=== PATIENT | female | born 1975 | race Caucasian/White ===

== ENCOUNTER 2016-09-07 21:17 | Emergency (ER) | payer OTHER ==
[~2016-09-07 21:17] MED LIST: PERCOCET1 TA1 PO
--- NOTE | 2016-09-07 23:03 | ED NURSING NOTES ---
Clinical Report - Nurses [facility] [address] [place] [address] 09/07/2016 21:20 [id number] Triage time 21:Sep 07 2016. Acuity: LEVEL 3. Chief Complaint: DIZZINESS and LIGHT HEADED. SEPSIS SCREEN: Sepsis Screen: negative. Negative (no infection suspected/documented). ARON COMA SCORE: Aron Coma Scale: 15- eyes open spontaneously (4); best verbal response- oriented x 4 (5); best motor response- obeys commands (6). --21:34 Nancy Amos 21:30 09/07/16. BP: 140/52. HR: 64. RR: 20. O2 saturation: 100% on room air. Pain level now: 0/10. --21:34 Nancy Amos 21:34 09/07/16. Temp: 97.8 F (oral). --21:34 Nancy Amos. Weight: 81.6 kg stated. Height/Length: 68 inches Per Patient. BMI: 27.4. --21:33 Nancy Amos. Medications None. --21:31 Nancy Amos. Medication/allergy information source: the patient. --21:34 Nancy Amos. Allergies No Known Drug Allergy. --21:31 Nancy Amos. History Arrived by private vehicle. Historian: patient. Accompanied by friend. Primary physician (jayro). This started 1 weeks. ( Patient reports for one week she has had episodes of dizziness, she states during these episodes she feels like she will pass out.). Treatment CHILDREN'S COUNSELOR: None. PAST MEDICAL HX: Immunizations: up-to-date. Last normal menstrual period now. SOCIAL HX: Heavy tobacco smoker (cigarette)- 1 pack per day. Occasional alcohol use. No drug use. No infectious disease exposure. ABUSE ASSESSMENT: No report of abuse. FALL RISK ASSESSMENT: Fall risk assessment completed. No fall risk identified. NUTRITIONAL RISK ASSESSMENT: The nutritional risk assessment revealed no deficiencies. FUNCTIONAL ASSESSMENT: Functional assessment: no impairments noted. LEARNING NEEDS ASSESSMENT: The learning needs assessment revealed no barriers. SKIN INTEGRITY ASSESSMENT: Skin integrity risk assessment completed. No skin integrity risk identified. --21:34 Nancy Amos. PROBLEMS: Ovarian Cyst. --21:31 Nancy Amos. ADDITIONAL SURGERIES: Tubal Ligation. --21:31 Nancy Amos. Interventions ID band on patient. To treatment room. --:34 Nancy Amos. NURSING PROGRESS NOTES :09/07/16. human machine interface engineer, pulse oximeter and NIBP monitor placed on patient; monitor alarms on. EKG time: (:33 Sep 07 2016). EKG was performed by a nurse and shown to the ED physician. Patient gowned. Reassurance given to the patient. Two patient identifiers checked. Call light placed in reach. Side rails up x 1. Bed placed in lowest position. Brakes of bed on. --:34 Nancy Amos Patient ready for evaluation- chart flagged and ED physician notified. --21:34 Nancy Amos :09/07/2016 Site #1 started via IV in the right antecubital space with an 20g angiocath, with aseptic technique and good blood return; one attempt. Blood drawn: rainbow set. Labeled in the presence of the patient and sent to the lab. Saline lock flushed with 10 mL saline. --:58 Nancy Amos :09/07/2016 Started bag #1 1000 mL IV Fluids IV NS (Saline); at 1000 mL/hr over 1 hour(s) via site #1. Allergies verified and confirmed 5 rights. IV patency established. IV site checked: no pain, redness, or swelling. IV flushed thoroughly pre- and post-medication administration. --21:58 Nancy Amos 21:58 09/07/16. BP: 129/66 taken while lying. HR: 55. --21:59 Nancy Amos 21:59 09/07/16. BP: 133/79 taken while sitting. HR: 72. --21:59 Nancy Amos 21:59 09/07/16. BP: 129/82 taken while standing. HR: 67. --21:59 Nancy Amos ( Patient assisted to restroom). --21:59 Nancy Amos 22:53 09/07/2016 IV Fluids IV NS Discontinued: bag #1 completed upon discharge. Total amount infused: 1000 mL. IV patency established. IV site checked: no pain, redness, or swelling. IV flushed thoroughly. --22:53 Nancy Amos 22:53 09/07/16. BP: 130/84. HR: 52. RR: 20. O2 saturation: 99% on room air. --22:53 Nancy Amos. DISPOSITION / DISCHARGE 23:09/07/2016 Site #1 removed upon discharge. Catheter intact. Manual pressure and bandage applied. --23:09 Trena Romo R.N. 23:09/07/16. BP: 130/84. HR: 54. RR: 17. O2 saturation: 100% on room air. Temp: deferred. Pain level now: 0/10. --23:10 Trena Romo R.N. 23:15 09/07/16. Condition at departure: stable. The goals identified in the patient's plan of care were met. No learning barriers present. Discharge instructions provided and reviewed with the patient and spouse. Reviewed medication(s) side effects, precautions, dosing and course information. Prescription(s) given to the patient. Reviewed need for increased fluid intake. Patient verbalized understanding. Written instructions provided in Setswana. ( Follow up with your PCP for next available appointment. Return if your symptoms worsen. Drink plenty of fluids and rest. Patient and spouse verbalized understanding and had no additional questions at this time.). The patient was discharged by the nurse practitioner. She was discharged home and accompanied by spouse. She left the Emergency Department ambulatory and via private vehicle. Spouse driving. FALL RISK ASSESSMENT: Fall risk assessment completed. No fall risk identified. --00:42 Nancy Amos. Locked/Released at 09/08/2016 0:45 by Nancy Amos,
--- NOTE | 2016-09-07 23:03 | ED CLINICAL REPORT ---
Clinical Report - Physicians/Mid Levels [facility] [address] [place] [address] 09/07/2016 21:20 [id number] Time Seen: 21:33; upon arrival, initial patient contact, initial documentation, patient care assumed. Arrived- By private vehicle. Historian- patient. HISTORY OF PRESENT ILLNESS Chief Complaint: DIZZINESS. Severity described as severe at its maximum. When seen in the E.D., it was gone. Modifying factors- relieved by nothing. Not worsened by anything. Not described as a sense of rotation, movement, falling or confusion or feeling weak all over. Described as feeling off balance, light-headed and faint. This started about 1 weeks ago and is now gone. It was abrupt in onset and has been intermittent. No nausea, vomiting, hearing loss, tinnitus or ear pain. (having random intermittent issues of dizziness and feeling faint and lightheaded, comes on last a few sec to min and goes away, this episode was after her run tonight, lasted about 30 min). Similar symptoms previously: None. Recent medical care: Not recently seen/assessed. REVIEW OF SYSTEMS No headache, double vision, weakness, head injury or chest pain. No numbness, difficulty breathing or diarrhea. No difficulty walking. All systems otherwise negative, except as recorded above. PAST HISTORY See nurses notes. ( PROBLEMS: Ovarian Cyst. --21:31 Nancy Amos. ADDITIONAL SURGERIES: Tubal Ligation. --21:31 Nancy Amos.). SOCIAL HISTORY Heavy tobacco smoker. Occasional alcohol use. No drug use. No recent travel. Is a local resident. FAMILY HISTORY Negative. ADDITIONAL NOTES The nursing notes have been reviewed with agreement regarding the chief complaint, HPI, ROS, PMH and patient medications and allergies. PHYSICAL EXAM Vital Signs: 09/07/2016 21:30 BP: 140/52. HR: 64. RR: 20. O2 saturation: 100%. Pain level now: 0/10. Have been reviewed as normal and appear to be correct. Appearance: Alert. No acute distress. Eyes: Pupils equal, round and reactive to light. No nystagmus. Extraocular movements normal. ENT: Normal ENT inspection. TM's normal. Moist mucous membranes. Pharynx normal. Neck: Normal inspection. Neck supple. CVS: Normal heart rate and rhythm. Heart sounds normal. Pulses normal. Respiratory: No respiratory distress. Breath sounds normal. Back: Normal inspection. Skin: Skin warm and dry. Normal skin color. No rash. Normal skin turgor. Extremities: Extremities exhibit normal ROM. No lower extremity edema. Neuro: Alert. Oriented X 3. Mood/affect normal. Speech normal. Cranial nerves normal (as tested). No cerebellar findings. No motor deficit. No sensory deficit. LABS, X-RAYS, AND EKG EKG: EKG time: (21:33). No acute process. No acute ischemia. Normal EKG. Rate: 60. Normal EKG. The study has been interpreted contemporaneously by me (and dr valerio). The EKG appears to be a good tracing. Interpretation time: 2134. Laboratory Tests: Serum Qualitative: (MILLY: 09/07/2016 21:50) ( [facility] 09/07/2016 22:14) Final results Test Result Flag Units (Reference) , SERUM NEGATIVE CBC w Diff: (MILLY: 09/07/2016 21:50) ( [facility] 09/07/2016 22:15) Final results Test Result Flag Units (Reference) WHITE BLOOD COUNT 9.1 K/uL (4.5-11.5) RED BLOOD COUNT 4.41 M/uL (4.00-5.20) HEMOGLOBIN 13.5 gm/dL (12.0-16.0) HEMATOCRIT 38.8 % (36.0-46.0) MEAN CELL VOLUME 88 fL (80-100) MEAN CORPUSCULAR HGB 31 pg (26-34) MEAN CORPUSCULAR HGB CONC 35 g/dL (31-37) RED CELL DISTRIBUTION WIDTH 13.2 % (11.6-14.8) PLATELET COUNT 198 K/uL (150-400) NEUTROPHIL % 57.9 % (50-75) LYMPH % 31.0 % (25-40) MONO % 8.6 % (3-14) EOSINOPHIL % 1.8 % (0-4) BASOPHIL % 0.7 % (0-2) CMP: (MILLY: 09/07/2016 21:50) ( MsgRcvd 09/07/2016 22:38) Final results Test Result Flag Units (Reference) GLUCOSE 106 mg/dL (70-110) BUN 11 mg/dL (7-18) CREATININE 0.8 mg/dL (0.6-1.3) Estimated GFR >60 mL/min Estimated GFR- >60 mL/min Note: Persistent reduction over 3 months in eGFR<60 mL/min/1.73 m2 defines CKD. Patients with eGFR values>=60 mL/min/1.73 m2 may also have CKD if evidence ofpersistent proteinuria. Additional information may be foundat www.kidney.org. SODIUM 128 L mmol/L (136-145) POTASSIUM 4.0 mmol/L (3.5-5.1) CHLORIDE 95 L mmol/L (98-107) CARBON DIOXIDE 28 mmol/L (21-32) CALCIUM 8.6 mg/dL (8.5-10.1) TOTAL PROTEIN 7.3 g/dL (6.4-8.2) ALBUMIN 3.6 g/dL (3.3-5.0) BILIRUBIN, TOTAL 0.6 mg/dL (0.0-1.0) ALKALINE PHOSPHATASE 67 U/L (46-116) AST (SGOT) 25 U/L (15-37) ALT (SGPT) 33 U/L (12-78) . PROGRESS AND PROCEDURES Family counseled in person regarding the patient's stable condition, test results and diagnosis. 23:02. Differential Diagnosis: I considered vertigo, cochlear disease, labyrinthitis, drug-related etiology, benign positional vertigo, brainstem TIA, near-syncope, anxiety, psychosis and metaphorical dizziness such as depression, chronic fatigue, etc as a possible cause of dizziness in this patient. This is a partial list of diagnoses considered. Above considerations are based on history, physical exam, reassessment and X-Ray data. Differential diagnosis was discussed with patient. Disposition: Discharged home in good and improved condition (23:02). Condition: good and stable. CLINICAL IMPRESSION Acute dizziness Mild hyponatremia INSTRUCTIONS Warnings: Further evaluation is necessary in order to recheck abnormal lab (Na 128). It is very important to follow up with a physician. GENERAL WARNINGS: Return or contact your physician immediately if your condition worsens or changes unexpectedly, if not improving as expected, or if other problems arise. SPECIFICALLY, return if you develop chest pain, neck pain, jaw pain, shoulder pain, arm pain, back pain, fluttering sensation in your chest, lightheadedness, fainting, numbness, weakness or extreme fatigue. Prescription Medications: Zofran 4 mg: Take 1 orally every six hours as needed for nausea/vomiting. Dispense ten (10). No refills. Substitution is permissible. Follow-up: Follow up with your doctor in about two days even if well. Call for an appointment. Summary of care provided to patient. Understanding of the discharge instructions verbalized by patient. (Electronically signed by Xin Goodwin A.R.N.P. 09/07/2016 23:16)
--- NOTE | 2016-09-07 23:03 | ED NURSING NOTES ---
Clinical Report - Nurses [facility] [address] [place] [address] 09/07/2016 21:20 [id number] Triage time 21:Sep 07 2016. Acuity: LEVEL 3. Chief Complaint: DIZZINESS and LIGHT HEADED. SEPSIS SCREEN: Sepsis Screen: negative. Negative (no infection suspected/documented). ARON COMA SCORE: Aron Coma Scale: 15- eyes open spontaneously (4); best verbal response- oriented x 4 (5); best motor response- obeys commands (6). --21:34 Nancy Amos 21:30 09/07/16. BP: 140/52. HR: 64. RR: 20. O2 saturation: 100% on room air. Pain level now: 0/10. --21:34 Nancy Amos 21:34 09/07/16. Temp: 97.8 F (oral). --21:34 Nancy Amos. Weight: 81.6 kg stated. Height/Length: 68 inches Per Patient. BMI: 27.4. --21:33 Nancy Amos. Medications None. --21:31 Nancy Amos. Medication/allergy information source: the patient. --21:34 Nancy Amos. Allergies No Known Drug Allergy. --21:31 Nancy Amos. History Arrived by private vehicle. Historian: patient. Accompanied by friend. Primary physician (jayro). This started 1 weeks. ( Patient reports for one week she has had episodes of dizziness, she states during these episodes she feels like she will pass out.). Treatment DOOR SLINGER: None. PAST MEDICAL HX: Immunizations: up-to-date. Last normal menstrual period now. SOCIAL HX: Heavy tobacco smoker (cigarette)- 1 pack per day. Occasional alcohol use. No drug use. No infectious disease exposure. ABUSE ASSESSMENT: No report of abuse. FALL RISK ASSESSMENT: Fall risk assessment completed. No fall risk identified. NUTRITIONAL RISK ASSESSMENT: The nutritional risk assessment revealed no deficiencies. FUNCTIONAL ASSESSMENT: Functional assessment: no impairments noted. LEARNING NEEDS ASSESSMENT: The learning needs assessment revealed no barriers. SKIN INTEGRITY ASSESSMENT: Skin integrity risk assessment completed. No skin integrity risk identified. --21:34 Nancy Amos. PROBLEMS: Ovarian Cyst. --21:31 Nancy Amos. ADDITIONAL SURGERIES: Tubal Ligation. --21:31 Nancy Amos. Interventions ID band on patient. To treatment room. --:34 Nancy Amos. NURSING PROGRESS NOTES :09/07/16. patient monitor, pulse oximeter and NIBP monitor placed on patient; monitor alarms on. EKG time: (:33 Sep 07 2016). EKG was performed by a nurse and shown to the ED physician. Patient gowned. Reassurance given to the patient. Two patient identifiers checked. Call light placed in reach. Side rails up x 1. Bed placed in lowest position. Brakes of bed on. --:34 Nancy Amos Patient ready for evaluation- chart flagged and ED physician notified. --21:34 Nancy Amos :09/07/2016 Site #1 started via IV in the right antecubital space with an 20g angiocath, with aseptic technique and good blood return; one attempt. Blood drawn: rainbow set. Labeled in the presence of the patient and sent to the lab. Saline lock flushed with 10 mL saline. --:58 Nancy Amos :09/07/2016 Started bag #1 1000 mL IV Fluids IV NS (Saline); at 1000 mL/hr over 1 hour(s) via site #1. Allergies verified and confirmed 5 rights. IV patency established. IV site checked: no pain, redness, or swelling. IV flushed thoroughly pre- and post-medication administration. --21:58 Nancy Amos 21:58 09/07/16. BP: 129/66 taken while lying. HR: 55. --21:59 Nancy Amos 21:59 09/07/16. BP: 133/79 taken while sitting. HR: 72. --21:59 Nancy Amos 21:59 09/07/16. BP: 129/82 taken while standing. HR: 67. --21:59 Nancy Amos ( Patient assisted to restroom). --21:59 Nancy Amos 22:53 09/07/2016 IV Fluids IV NS Discontinued: bag #1 completed upon discharge. Total amount infused: 1000 mL. IV patency established. IV site checked: no pain, redness, or swelling. IV flushed thoroughly. --22:53 Nancy Amos 22:53 09/07/16. BP: 130/84. HR: 52. RR: 20. O2 saturation: 99% on room air. --22:53 Nancy Amos. DISPOSITION / DISCHARGE 23:09/07/2016 Site #1 removed upon discharge. Catheter intact. Manual pressure and bandage applied. --23:09 Trena Romo R.N. 23:09/07/16. BP: 130/84. HR: 54. RR: 17. O2 saturation: 100% on room air. Temp: deferred. Pain level now: 0/10. --23:10 Trena oRmo R.N. 23:15 09/07/16. Condition at departure: stable. The goals identified in the patient's plan of care were met. No learning barriers present. Discharge instructions provided and reviewed with the patient and spouse. Reviewed medication(s) side effects, precautions, dosing and course information. Prescription(s) given to the patient. Reviewed need for increased fluid intake. Patient verbalized understanding. Written instructions provided in Spanish. ( Follow up with your PCP for next available appointment. Return if your symptoms worsen. Drink plenty of fluids and rest. Patient and spouse verbalized understanding and had no additional questions at this time.). The patient was discharged by the nurse practitioner. She was discharged home and accompanied by spouse. She left the Emergency Department ambulatory and via private vehicle. Spouse driving. FALL RISK ASSESSMENT: Fall risk assessment completed. No fall risk identified. --00:42 Nancy Amos. Locked/Released at 09/08/2016 0:45 by Nancy Amos,
--- NOTE | 2016-09-07 23:03 | ED ORDER SUMMARY ---
..... Patient: KRISTIN FOX OrderSheet [facility] VisitID: [id number] [place] [address] 41y, F Registration Date/Time: 09/07/2016 ORDER SHEET Weight: 81.6 kg (stated) Allergies: No Known Drug Allergy GENERAL ORDERS: Vitals - Orthostatic (21:39 09/07/2016 HBivens A.R.N.P.) (21:42 HSoule) CBC w Diff Urgent (21:40 09/07/2016 HBivens A.R.N.P.) (Ack 22:04 RKaruga) (22:52 HSoule) CMP Urgent (21:40 09/07/2016 HBivens A.R.N.P.) (Ack 22:04 RKaruga) (22:52 HSoule) Serum Qualitative Urgent (21:40 09/07/2016 HBivens A.R.N.P.) (Ack 22:04 RKaruga) (22:52 HSoule) MEDICATION ORDERS: IV FLUIDS: IV NS : initial bolus 1000 mL (1000 mL/hr), then none - (NOW) (21:40 09/07/2016 HBivens A.R.N.P.) (Ack 21:42 HSoule) (21:58 HSoule) IV Saline Lock (21:40 09/07/2016 HBivens A.R.N.P.) (Ack 21:42 HSoule) (21:58 HSoule) IV NS : initial bolus 1000 mL (1000 mL/hr), then none - (NOW) (22:37 09/07/2016 HBivens A.R.N.P.) (Ack 22:37 HSoule) (Cancelled: Other22:38 HBivens A.R.N.P.) ORDER SHEET NOTES: [Electronically signed by Xin Goodwin A.R.N.P. (23:16 09/07/2016)] [Electronically signed by Nancy Amos (00:45 09/08/2016)] [Electronically locked/signed by Nancy Amos (00:45 09/08/2016)]
--- NOTE | 2016-09-07 23:03 | ED ORDER SUMMARY ---
..... Patient: KRISTIN FOX OrderSheet [facility] VisitID: [id number] [place] [address] 41y, F Registration Date/Time: 09/07/2016 ORDER SHEET Weight: 81.6 kg (stated) Allergies: No Known Drug Allergy GENERAL ORDERS: Vitals - Orthostatic (21:39 09/07/2016 HBivens A.R.N.P.) (21:42 HSoule) CBC w Diff Urgent (21:40 09/07/2016 HBivens A.R.N.P.) (Ack 22:04 RKaruga) (22:52 HSoule) CMP Urgent (21:40 09/07/2016 HBivens A.R.N.P.) (Ack 22:04 RKaruga) (22:52 HSoule) Serum Qualitative Urgent (21:40 09/07/2016 HBivens A.R.N.P.) (Ack 22:04 RKaruga) (22:52 HSoule) MEDICATION ORDERS: IV FLUIDS: IV NS : initial bolus 1000 mL (1000 mL/hr), then none - (NOW) (21:40 09/07/2016 HBivens A.R.N.P.) (Ack 21:42 HSoule) (21:58 HSoule) IV Saline Lock (21:40 09/07/2016 HBivens A.R.N.P.) (Ack 21:42 HSoule) (21:58 HSoule) IV NS : initial bolus 1000 mL (1000 mL/hr), then none - (NOW) (22:37 09/07/2016 HBivens A.R.N.P.) (Ack 22:37 HSoule) (Cancelled: Other22:38 HBivens A.R.N.P.) ORDER SHEET NOTES: [Electronically signed by Xin Goodwin A.R.N.P. (23:16 09/07/2016)] [Electronically signed by Nancy Amos (00:45 09/08/2016)] [Electronically locked/signed by Nancy Amos (00:45 09/08/2016)]
--- NOTE | 2016-09-08 00:45 | ED DISCHARGE INSTRUCTIONS ---
Patient: KRISTIN FOX General Instructions Located Within [facility] VisitID: [id number] [place] [address] 41y, F Registration Date/Time: 09/07/2016 Acute dizziness Mild hyponatremia INSTRUCTIONS Warnings: Further evaluation is necessary in order to recheck abnormal lab (Na 128). It is very important to follow up with a physician. GENERAL WARNINGS: Return or contact your physician immediately if your condition worsens or changes unexpectedly, if not improving as expected, or if other problems arise. SPECIFICALLY, return if you develop chest pain, neck pain, jaw pain, shoulder pain, arm pain, back pain, fluttering sensation in your chest, lightheadedness, fainting, numbness, weakness or extreme fatigue. Prescription Medications: Zofran 4 mg: Take 1 orally every six hours as needed for nausea/vomiting. Dispense ten (10). No refills. Substitution is permissible. Follow-up: Follow up with your doctor in about two days even if well. Call for an appointment. Summary of care provided to patient. Understanding of the discharge instructions verbalized by patient. ADDITIONAL INFORMATION Dizziness [Uncertain Cause] Dizziness is a common symptom sometimes described as "lightheadedness" or feeling like you are going to faint. If it lasts for only a few seconds and is related to changes in position (such as getting up after lying or sitting for a long time), it is usually not a sign of anything serious. Dizziness that lasts for minutes to hours, or comes on for no apparent reason, may be a sign of a more serious problem (such as dehydration, a medicine reaction, disease of the heart or brain). Today's exam did not show an exact cause for your dizzy spell . Sometimes additional tests are required before a cause can be found. Therefore, it is important to follow up with your doctor if your symptoms continue. Home Care: 1) If a dizzy spell occurs and lasts more than a few seconds, lie down until it passes. If you are lying down, then you cannot hurt yourself by falling if you do faint. 2) Do not drive or operate dangerous equipment until the dizzy spells have stopped for at least 48 hours. 3) If dizzy spells occur with sudden standing, this may be a sign of mild dehydration. Drink extra fluids over the next few days. 4) If you recently started a new medicine or if you had the dose of a current medicine increased (especially blood pressure medicine), talk with the prescribing doctor about your symptoms. Dose adjustments may be needed. Follow Up with your doctor for further evaluation within the next seven days, if your symptoms continue. Get Prompt Medical Attention if any of the following occur: -- Worsening of your symptoms -- Fainting, headache or seizure -- Repeated vomiting -- Feeling like you or the room is spinning -- Chest, arm, neck, back or jaw pain -- Palpitations (the sense that your heart is fluttering or beating fast or hard) -- Shortness of breath -- Blood in vomit or stool (black or red color) -- Weakness of an arm or leg or one side of the face -- Difficulty with speech or vision Hyponatremia Hyponatremia means low sodium levels in the blood. This condition most often occurs after prolonged vomiting or diarrhea. It can also result from the use of diuretics (water pills) or drinking excess amounts of water. Mild hyponatremia causes no symptoms. It is only discovered with a blood test. As sodium levels in the blood decreases, symptoms begin to appear. This includes weakness, confusion, muscle cramping and seizures. Home Care: 1) Reduce your daily water intake until the problem is corrected. 2) If you have been taking diuretics, you may be asked to stop taking them for a short time. 3) If you are having symptoms of weakness or confusion, do not drive or operate dangerous machinery until symptoms resolve. Follow Up with your doctor for a repeat blood test within the next week unless told otherwise. Get Prompt Medical Attention if any of the following occur: -- Increasing weakness -- Dizziness -- Irregular heartbeat, extra beats or very fast heart rate -- Fainting spell Ondansetron Oral disintegrating tablet What is this medicine? ONDANSETRON (on BRIAN se marissa) is used to treat nausea and vomiting caused by chemotherapy. It is also used to prevent or treat nausea and vomiting after surgery. How should I use this medicine? These tablets are made to dissolve in the mouth. Do not try to push the tablet through the foil backing. With dry hands, peel away the foil backing and gently remove the tablet. Place the tablet in the mouth and allow it to dissolve, then swallow. While you may take these tablets with water, it is not necessary to do so. Talk to your shipping point inspector regarding the use of this medicine in children. Special care may be needed. What side effects may I notice from receiving this medicine? Side effects that you should report to your doctor or health health care coordinator as soon as possible: allergic reactions like skin rash, itching or hives, swelling of the face, lips, or tongue breathing problems dizziness fast or irregular heartbeat feeling faint or lightheaded, falls fever and chills swelling of the hands and feet tightness in the chest Side effects that usually do not require medical attention (report to your doctor or health health care coordinator if they continue or are bothersome): constipation or diarrhea headache What may interact with this medicine? Do not take this medicine with any of the following medications: -apomorphine -cisapride -dofetilide -dronedarone -pimozide -thioridazine -ziprasidone This medicine may also interact with the following medications: -carbamazepine -phenytoin -rifampicin -tramadol -other medicines that prolong the QT interval (cause an abnormal heart rhythm) What if I miss a dose? If you miss a dose, take it as soon as you can. If it is almost time for your next dose, take only that dose. Do not take double or extra doses. Where should I keep my medicine? Keep out of the reach of children. Store between 2 and 30 degrees C (36 and 86 degrees F). Throw away any unused medicine after the expiration date. What should I tell my health care provider before I take this medicine? They need to know if you have any of these conditions: heart disease history of irregular heartbeat liver disease low levels of magnesium or potassium in the blood an unusual or allergic reaction to ondansetron, granisetron, other medicines, foods, dyes, or preservatives or trying to get breast-feeding What should I watch for while using this medicine? Check with your doctor or health health care coordinator as soon as you can if you have any sign of an allergic reaction. You have been given the following additional information: Dizziness, Unk Cause Hyponatremia Ondansetron Oral disintegrating tablet (Electronically signed by Xin Goodwin A.R.NVaughnPVaughn 09/07/2016 23:16)
--- NOTE | 2016-09-08 00:45 | ED MAR SUMMARY ---
..... Medication Administration Record [facility] [address] [place] [address] Patient: KRISTIN FOX Visit ID: [id number] 41y, F Weight: 81.6 kg Height/Length: 68 in BMI: 27.4 ALLERGIES: No Known Drug Allergy Start 21:58 09/07/2016 Nancy Amos,, Stop 22:53 09/07/2016 Nancy Amos, Medication Administered: IV NS (SALINE), Dose: IV Fluids over 1 hour(s), Rate: 1000 mL/hr, Dispensed: 1000 mL bag, Site: #1 right AC. Medication Ordered: IV NS : initial bolus 1000 mL (1000 mL/hr), then none - (NOW).
--- NOTE | 2016-09-08 00:45 | ED MED RECONCILIATION SUMMARY ---
Patient: KRISTIN FOX Medication Reconciliation Report [facility] VisitID: [id number] [place] [address] 41y, F Registration Date/Time: 09/07/2016 Weight: 81.6 kg Height/Length: 68 in. BMI: 27.4 ALLERGIES: No Known Drug Allergy The patient's Home Medications are listed below: NONE. The source(s) of the original Home Medication information: patient The following Medications were given to the patient in the Emergency Department: IV NS IV Fluids bolus 0, then 1000 mL/hr, administered: 09/07/2016 9:58:00 PM The following Medications were prescribed to the patient: Zofran 4 mg: Take 1 orally every six hours as needed for nausea/vomiting. Dispense ten (10). No refills. Substitution is permissible. -- Xin Goodwin A.R.N.P.
--- NOTE | 2016-09-08 00:45 | ED DISCHARGE INSTRUCTIONS ---
Patient: KRISTIN FOX General Instructions [facility] VisitID: [id number] [place] [address] 41y, F Registration Date/Time: 09/07/2016 Acute dizziness Mild hyponatremia INSTRUCTIONS Warnings: Further evaluation is necessary in order to recheck abnormal lab (Na 128). It is very important to follow up with a physician. GENERAL WARNINGS: Return or contact your physician immediately if your condition worsens or changes unexpectedly, if not improving as expected, or if other problems arise. SPECIFICALLY, return if you develop chest pain, neck pain, jaw pain, shoulder pain, arm pain, back pain, fluttering sensation in your chest, lightheadedness, fainting, numbness, weakness or extreme fatigue. Prescription Medications: Zofran 4 mg: Take 1 orally every six hours as needed for nausea/vomiting. Dispense ten (10). No refills. Substitution is permissible. Follow-up: Follow up with your doctor in about two days even if well. Call for an appointment. Summary of care provided to patient. Understanding of the discharge instructions verbalized by patient. ADDITIONAL INFORMATION Dizziness [Uncertain Cause] Dizziness is a common symptom sometimes described as "lightheadedness" or feeling like you are going to faint. If it lasts for only a few seconds and is related to changes in position (such as getting up after lying or sitting for a long time), it is usually not a sign of anything serious. Dizziness that lasts for minutes to hours, or comes on for no apparent reason, may be a sign of a more serious problem (such as dehydration, a medicine reaction, disease of the heart or brain). Today's exam did not show an exact cause for your dizzy spell . Sometimes additional tests are required before a cause can be found. Therefore, it is important to follow up with your doctor if your symptoms continue. Home Care: 1) If a dizzy spell occurs and lasts more than a few seconds, lie down until it passes. If you are lying down, then you cannot hurt yourself by falling if you do faint. 2) Do not drive or operate dangerous equipment until the dizzy spells have stopped for at least 48 hours. 3) If dizzy spells occur with sudden standing, this may be a sign of mild dehydration. Drink extra fluids over the next few days. 4) If you recently started a new medicine or if you had the dose of a current medicine increased (especially blood pressure medicine), talk with the prescribing doctor about your symptoms. Dose adjustments may be needed. Follow Up with your doctor for further evaluation within the next seven days, if your symptoms continue. Get Prompt Medical Attention if any of the following occur: -- Worsening of your symptoms -- Fainting, headache or seizure -- Repeated vomiting -- Feeling like you or the room is spinning -- Chest, arm, neck, back or jaw pain -- Palpitations (the sense that your heart is fluttering or beating fast or hard) -- Shortness of breath -- Blood in vomit or stool (black or red color) -- Weakness of an arm or leg or one side of the face -- Difficulty with speech or vision Hyponatremia Hyponatremia means low sodium levels in the blood. This condition most often occurs after prolonged vomiting or diarrhea. It can also result from the use of diuretics (water pills) or drinking excess amounts of water. Mild hyponatremia causes no symptoms. It is only discovered with a blood test. As sodium levels in the blood decreases, symptoms begin to appear. This includes weakness, confusion, muscle cramping and seizures. Home Care: 1) Reduce your daily water intake until the problem is corrected. 2) If you have been taking diuretics, you may be asked to stop taking them for a short time. 3) If you are having symptoms of weakness or confusion, do not drive or operate dangerous machinery until symptoms resolve. Follow Up with your doctor for a repeat blood test within the next week unless told otherwise. Get Prompt Medical Attention if any of the following occur: -- Increasing weakness -- Dizziness -- Irregular heartbeat, extra beats or very fast heart rate -- Fainting spell Ondansetron Oral disintegrating tablet What is this medicine? ONDANSETRON (on BRIAN se marissa) is used to treat nausea and vomiting caused by chemotherapy. It is also used to prevent or treat nausea and vomiting after surgery. How should I use this medicine? These tablets are made to dissolve in the mouth. Do not try to push the tablet through the foil backing. With dry hands, peel away the foil backing and gently remove the tablet. Place the tablet in the mouth and allow it to dissolve, then swallow. While you may take these tablets with water, it is not necessary to do so. Talk to your compatibility test engineer regarding the use of this medicine in children. Special care may be needed. What side effects may I notice from receiving this medicine? Side effects that you should report to your doctor or health critical care nurse specialist as soon as possible: allergic reactions like skin rash, itching or hives, swelling of the face, lips, or tongue breathing problems dizziness fast or irregular heartbeat feeling faint or lightheaded, falls fever and chills swelling of the hands and feet tightness in the chest Side effects that usually do not require medical attention (report to your doctor or health critical care nurse specialist if they continue or are bothersome): constipation or diarrhea headache What may interact with this medicine? Do not take this medicine with any of the following medications: -apomorphine -cisapride -dofetilide -dronedarone -pimozide -thioridazine -ziprasidone This medicine may also interact with the following medications: -carbamazepine -phenytoin -rifampicin -tramadol -other medicines that prolong the QT interval (cause an abnormal heart rhythm) What if I miss a dose? If you miss a dose, take it as soon as you can. If it is almost time for your next dose, take only that dose. Do not take double or extra doses. Where should I keep my medicine? Keep out of the reach of children. Store between 2 and 30 degrees C (36 and 86 degrees F). Throw away any unused medicine after the expiration date. What should I tell my health care provider before I take this medicine? They need to know if you have any of these conditions: heart disease history of irregular heartbeat liver disease low levels of magnesium or potassium in the blood an unusual or allergic reaction to ondansetron, granisetron, other medicines, foods, dyes, or preservatives or trying to get breast-feeding What should I watch for while using this medicine? Check with your doctor or health critical care nurse specialist as soon as you can if you have any sign of an allergic reaction. You have been given the following additional information: Dizziness, Unk Cause Hyponatremia Ondansetron Oral disintegrating tablet (Electronically signed by Xin Goodwin A.R.NVaughnPVaughn 09/07/2016 23:16)
--- NOTE | 2016-09-08 00:45 | ED MAR SUMMARY ---
..... Medication Administration Record [facility] [address] [place] [address] Patient: KRISTIN FOX Visit ID: [id number] 41y, F Weight: 81.6 kg Height/Length: 68 in BMI: 27.4 ALLERGIES: No Known Drug Allergy Start 21:58 09/07/2016 Nancy Amos,, Stop 22:53 09/07/2016 Nancy Amos, Medication Administered: IV NS (SALINE), Dose: IV Fluids over 1 hour(s), Rate: 1000 mL/hr, Dispensed: 1000 mL bag, Site: #1 right AC. Medication Ordered: IV NS : initial bolus 1000 mL (1000 mL/hr), then none - (NOW).
--- NOTE | 2016-09-08 00:45 | ED MED RECONCILIATION SUMMARY ---
Patient: KRISTIN FOX Medication Reconciliation Report [facility] VisitID: [id number] [place] [address] 41y, F Registration Date/Time: 09/07/2016 Weight: 81.6 kg Height/Length: 68 in. BMI: 27.4 ALLERGIES: No Known Drug Allergy The patient's Home Medications are listed below: NONE. The source(s) of the original Home Medication information: patient The following Medications were given to the patient in the Emergency Department: IV NS IV Fluids bolus 0, then 1000 mL/hr, administered: 09/07/2016 9:58:00 PM The following Medications were prescribed to the patient: Zofran 4 mg: Take 1 orally every six hours as needed for nausea/vomiting. Dispense ten (10). No refills. Substitution is permissible. -- Xin Goodwin A.R.N.P.
== END 2016-09-07 23:15 | disposition home or self-care (01) ==
LOC: ED SRH 21:17
DX: R42 Dizziness and giddiness (principal); E87.1 Hypo-osmolality and hyponatremia; F17.210 Nicotine dependence, cigarettes, uncomplicated
CPT/HCPCS: 90100; 95059; 98428